=== PATIENT | female | born 1995 | race African-American/Black ===

== ENCOUNTER 2022-06-03 03:09 | Emergency (ER) | payer OTHER ==
[~2022-06-03] VITALS: Ht 152.4 cm; Wt 53.2 kg
[2022-06-03 03:30] VITALS: BP 111/67
== END 2022-06-03 08:41 | disposition left against medical advice (07) ==
LOC: ER 03:09
DX: Z53.21 Procedure and treatment not carried out due to patient leaving prior to being seen by health care provider (principal)